=== PATIENT | female | born 1970 | race Two or more races ===

== ENCOUNTER 2022-06-01 08:40 | Emergency (ER) | payer OTHER ==
[~2022-06-01] VITALS: Ht 162.6 cm; Wt 54.4 kg
[2022-06-01] MEDS ORDERED: NAPROXEN 500 MG TABLET PO ONE (09:30)
[2022-06-01] MEDS ORDERED: NAPROXEN 500 MG TABLET ONE (09:32)
--- NOTE | 2022-06-01 10:45 | NUR ---
PATIENT A/O X 4, PRESENTS TO THE ER C/O (RT) HAND PAIN/SWELLING. HAND IS VISIBLIY SWOLLEN, DENIES TRAUMA WITH FULL ROM. PATIENT SEEN BY THE ER MD, X-RAY ORDERED AND COMPLETED AND PATINET MEDICATED PER ORDERS. PATIENT SEEN SND CLEARED FOR DISCHARGE, INSTRUCTIONS PROVIDED. PATIENT STABLE LEFT AMBULATORY.
== END 2022-06-01 10:53 | disposition home or self-care (01) ==
LOC: ER 09:05
DX: M79.644 Pain in right finger(s) (principal)
CPT/HCPCS: 73130; A4663